=== PATIENT | male | born 2000 | race Hispanic/Latino ===

== ENCOUNTER 2023-09-08 20:36 | Emergency (ER) | payer SELFPAY ==
--- NOTE | 2023-09-08 21:20 | ER ---
Nurse's Notes [facility] Name: Tahir Winters Age: 23 yrs Sex: Male : 2000 Arrival Date: 09/08/2023 Time: 20:36 Bed Waiting Private MD: Diagnosis: ED Course: 09/08 20:41 Patient arrived in ED. jj6 20:42 Khalif Sims DO is Attending Physician. ms3 21:17 [facility] No response. cm10 Administered Medications: No medications were administered Outcome: 21:19 Patient left the ED. cm10 Signatures: Khalif Sims DO DO ms3 Lisa Sanchez jj6 Gail Goodman, RN RN cm10
== END 2023-09-08 21:19 | disposition left against medical advice (07) ==
LOC: ER 20:36
DX: Z02.9 Encounter for administrative examinations, unspecified (principal)

== ENCOUNTER → 2023-10-05 | Emergency (ER) | payer BC, SELFPAY ==
[~2023-10-05] MED LIST: FAMOTIDINE 20 MG/2 ML VIAL IV ONE
[2023-10-05 14:17] LABS: Absolute Lymphocytes (CBC) 1.3 K/uL (0.7-4.9); Hematocrit 43.2 % (39.6-49.0); Lymphocytes % 13.4 % (15.3-44.8); MCV 87.8 fL (80-100); MPV 7.2 fL (7.6-11.3); Platelets 211 thou/uL (152-406); RBC Red Blood Cell Count 4.92 M/uL (4.33-5.43)
[2023-10-05 14:30] LABS: Albumin 3.9 g/dL (3.4-5.0); Bilirubin Total 0.6 mg/dL (0.2-1.0); Potassium 4.1 mEq/L (3.5-5.1); Protein, Total 6.7 g/dL (6.4-8.2)
--- NOTE | 2023-10-05 14:33 | EDPHYS ---
Physician Documentation [facility] Name: Tahir Winters Age: 23 yrs Sex: Male : 2000 Arrival Date: 10/05/2023 Time: 13:26 Bed DIS3 Private MD: ED Physician Leo Wilder HPI: 10/05 13:49 This 23 yrs old Male presents to ER via EMS with complaints of Nausea/Vomiting.kb 13:49 The patient presents to the emergency department with nausea, vomiting. Onset: The kb symptoms/episode began/occurred this morning, at 08:00. Possible causes: unknown. The symptoms are aggravated by nothing. The symptoms are alleviated by nothing. Associated signs and symptoms: Pertinent positives: nausea, vomiting, Pertinent negatives: abdominal pain, diarrhea, fever. Severity of symptoms: At their worst the symptoms were moderate in the emergency department the symptoms have improved. The patient has not experienced similar symptoms in the past. The patient has not recently seen a physician. 13:51 Pt reports he woke up at 0800 with nausea and vomiting. States he hasn't been able to kb tolerate anything by mouth since then. Denies fever, diarrhea, abd pain. Denies sick contacts. Historical: - Allergies: 13:36 No Known Allergies; iw - Home Meds: 13:36 None [Active]; iw - PMHx: 13:36 None; iw - PSHx: 13:36 None; iw - Immunization history:: Adult Immunizations not up to date. - Social history:: Smoking status: Patient uses alcohol, weekly. street drugs, marijuana. ROS: 13:48 Constitutional: Negative for fever, chills, and weight loss, kb 13:48 Abdomen/GI: Positive for nausea and vomiting, Negative for abdominal pain, diarrhea, 13:48 All other systems are negative, Exam: 13:48 Constitutional: This is a well developed, well nourished patient who is awake, alert, kb and in no acute distress. Head/Face: Normocephalic, atraumatic. ENT: Moist Mucous membranes Cardiovascular: Regular rate Respiratory: Respirations even and unlabored. No increased work of breathing. Talking in full sentences Abdomen/GI: Soft, non-tender. No distention Skin: Warm, dry with normal turgor. Normal color. MS/ Extremity: Pulses equal, no cyanosis. Neurovascular intact. Full, normal range of motion. Neuro: Awake and alert, GCS 15, oriented to person, place, time, and situation. Moves all extremities. Normal gait. Vital Signs: 13:35 BP 122 / 71; Pulse 72; Resp 16; Temp 98.1(O); Pulse Ox 100% ; Weight 58.97 kg; Height 5 iw ft. 8 in. ; Pain 0/10; 13:35 Body Mass Index 19.77 (58.97 kg, 172.72 cm) iw 13:35 Pain Scale: Adult iw MDM: 13:41 Patient medically screened. kb 13:49 Differential diagnosis: Nonspecific abd pain, gastritis, pancreatitis, viral kb gastroenteritis. Data reviewed: vital signs, nurses notes. 13:53 Historians other than the Patient: EMS: [facility]. kb 14:32 Test considered but Not performed: CT: CT abd considered but pt has no abd tenderness, kb afebrile and tolerating po intake. Counseling: I had a detailed discussion with the patient and/or guardian regarding the historical points, exam findings, and any diagnostic results supporting the discharge/admit diagnosis, lab results, the need for outpatient follow up, a family practitioner, to return to the emergency department if symptoms worsen or persist or if there are any questions or concerns that arise at home. 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 ): ondansetron 4 mg IVP once; over 2 minutes iw 14:22 Drug: Famotidine IVP 20 mg IVP once; dilute with 10 mL 0.9% NaCl; give over 2 minutes iw Route: IVP; Site: left hand; Disposition Summary: 10/05/23 14:33 Discharge Ordered Notes: Location: Home kb Condition: Stable kb Diagnosis - Nausea with vomiting, unspecified kb Followup: kb - With: Emergency Department - When: As needed - Reason: Worsening of condition Followup: kb - With: Private Physician - When: 2 - 3 days - Reason: Recheck today's complaints, Continuance of care, Re-evaluation by your physician Discharge Instructions: - Discharge Summary Sheet kb - Nausea and Vomiting, Adult, [id number] kb Forms: - Medication Reconciliation Form kb - Thank You Letter kb - Antibiotic Education kb - Prescription Opioid Use kb - Patient Portal Instructions kb - Leadership Thank You Letter kb Prescriptions: - Zofran 4 mg Oral tablet - take 1 tablet ORAL route every 6 hours As needed; 10 tablet; Refills: 0, kb Product Selection Permitted Addendum: 10/06/2023 21:15 I was immediately available for consultation during this patient's visit. I did not e c2 personally see the patient or guide the patient's care. . Signatures: Dispatcher [employer] Amanda De La O, GOYO-C EMBOSSING CLERK-Shirley Green, MARCELLUS RN Leo Arvizu MD MD ec2
--- NOTE | 2023-10-05 14:33 | ER ---
Nurse's Notes [facility] Name: Tahir Winters Age: 23 yrs Sex: Male : 2000 Arrival Date: 10/05/2023 Time: 13:26 Bed DIS3 Private MD: Diagnosis: Nausea with vomiting, unspecified Presentation: 10/05 13:34 Chief complaint: EMS states: n/v since 8 am today, can't hold anything down, + chills, iw no fever, denies abd pain. 13:34 Method Of Arrival: EMS: [facility] iw 13:35 Coronavirus screen: Client presents with at least one sign or symptom that may indicate iw coronavirus-19. Ebola Screen: Patient negative for fever greater than or equal to 101.5 degrees Fahrenheit, and additional compatible Ebola Virus Disease symptoms Patient denies exposure to infectious person. Patient denies travel to an Ebola-affected area in the 21 days before illness onset. No symptoms or risks identified at this time. Initial Sepsis Screen: Does the patient meet any 2 criteria? No. Patient's initial sepsis screen is negative. Does the patient have a suspected source of infection? No. Patient's initial sepsis screen is negative. Risk Assessment: Do you want to hurt yourself or someone else? Patient reports no desire to harm self or others. Onset of symptoms was October 05, 2023. 13:35 Acuity: BELLA 3 iw 13:38 Care prior to arrival: Medication(s) given: Normal saline infusion, 500 mL, zofran 4 iw mg, IV initiated. 20 GA, in the left hand. Historical: - Allergies: 13:36 No Known Allergies; iw - Home Meds: 13:36 None [Active]; iw - PMHx: 13:36 None; iw - PSHx: 13:36 None; iw - Immunization history:: Adult Immunizations not up to date. - Social history:: Smoking status: Patient uses alcohol, weekly. street drugs, marijuana. Screenin:38 [facility] ED Fall Risk Assessment (Adult) History of falling in the last 3 months, iw including since admission No falls in past 3 months (0 pts). Abuse screen: Denies threats or abuse. Denies injuries from another. Nutritional screening: No deficits noted. Tuberculosis screening: No symptoms or risk factors identified. Assessment: 13:37 General: Appears in no apparent distress. Behavior is calm, cooperative. Pain: Denies iw pain. Neuro: Level of Consciousness is awake, alert, obeys commands, Oriented to person, place, time, situation, Moves all extremities. Full function. Cardiovascular: Patient's skin is warm and dry. Respiratory: Respiratory effort is even, unlabored. GI: Abdomen is flat, non-distended, Reports nausea, vomiting, Patient currently denies diarrhea, pain. Derm: Skin is intact, is healthy with good turgor. Musculoskeletal: Range of motion: intact in all extremities. 14:22 Reassessment: Patient appears in no apparent distress at this time. Patient and/or iw family updated on plan of care and expected duration. Pain level reassessed. Patient is alert, oriented x 3, equal unlabored respirations, skin warm/dry/pink. Patient states feeling better. Patient states symptoms have improved. Vital Signs: 13:35 BP 122 / 71; Pulse 72; Resp 16; Temp 98.1(O); Pulse Ox 100% ; Weight 58.97 kg; Height 5 iw ft. 8 in. ; Pain 0/10; 13:35 Body Mass Index 19.77 (58.97 kg, 172.72 cm) iw 13:35 Pain Scale: Adult iw ED Course: 13:33 Patient arrived in ED. iw 13:36 Triage completed. iw 13:36 Arm band placed on. iw 13:37 Shirley Bower, RN is Primary Nurse. iw 13:38 Maintain EMS IV. Dressing intact. Good blood return noted. Gauge \T\ site: 22 left hand. iw 13:41 Amanda Díaz FNP-C is [facility]. kb 13:41 Leo Wilder MD is Attending Physician. kb 14:00 Patient has correct armband on for positive identification. Provided Education on: . iw 14:22 No provider procedures requiring assistance completed. iw 15:33 IV discontinued, intact, bleeding controlled, No redness/swelling at site. Pressure iw dressing applied. 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 iw Outcome: 14:33 Discharge ordered by . raya 15:33 Discharged to home ambulatory, iw 15:33 Condition: good 15:33 Discharge instructions given to patient, Instructed on discharge instructions, follow up and referral plans. medication usage, Demonstrated understanding of instructions, follow-up care, medications, Prescriptions given X 1, 15:34 Patient left the ED. bc6 Signatures: Amanda Díaz, HUMAN RESOURCES OFFICER-C HUMAN RESOURCES OFFICER-Shirley Green, RN RN Shante Wang bc6
[2023-10-05 16:18] VITALS: BP 122/71; TEMP 98.1; O2SAT 100
== END ==
LOC: ER 13:26
DX: R11.2 Nausea with vomiting, unspecified (principal)
CPT/HCPCS: 36415; 80053; 83690; 85025; 96374; 99284